=== PATIENT | male | born 1990 ===

== ENCOUNTER 2021-12-17 13:47 | Inpatient (IN) | payer OTHER ==
[~2021-12-17] VITALS: Ht 167.6 cm; Wt 54.1 kg
[2021-12-17 21:01] LABS: COVID AG,FIA SOURCE NASAL SWAB
[2021-12-17] MEDS ORDERED: ACETAMINOPHEN 325 MG TABLET PO PRN (21:30)
[2021-12-17] MEDS ORDERED: ONDANSETRON HCL 4 MG/2 ML VIAL IVP PRN (21:30)
[2021-12-17] MEDS: 1: MAGNESIUM SULFATE 2 GM, MVI, ADULT NO.1 WITH VIT K 10 ML, THIAMINE 100 MG, FOLIC ACID IV SCH ×5 (22:00)
[2021-12-17 22:30] VITALS: BP 114/78
[2021-12-17] MEDS: HEPARIN SODIUM,PORCINE 5,000 UNITS/ML VIAL SQ SCH (23:36)
[2021-12-18 04:20] VITALS: BP 92/56
[2021-12-18 08:00] VITALS: BP 95/62
[2021-12-18] MEDS: HEPARIN SODIUM,PORCINE 5,000 UNITS/ML VIAL SQ SCH ×3 (08:00→23:14)
[2021-12-18] MEDS: 1: MAGNESIUM SULFATE 2 GM, MVI, ADULT NO.1 WITH VIT K 10 ML, THIAMINE 100 MG, FOLIC ACID IV SCH ×10 (08:10→18:10)
[2021-12-18] MEDS: SERTRALINE HCL 100 MG TABLET PO SCH (11:15)
[2021-12-18] MEDS: DIVALPROEX SODIUM 250 MG DR TABLET PO SCH ×2 (11:15→19:50)
[2021-12-18] MEDS: RisperiDONE 2 MG TABLET PO SCH ×2 (11:15→19:50)
[2021-12-18 15:30] VITALS: BP 94/62
[2021-12-18 19:30] VITALS: BP 101/63
[2021-12-18] MEDS: PRAZOSIN HCL 2 MG CAPSULE PO SCH ×2 (19:50→20:57)
[2021-12-19] MEDS: 1: MAGNESIUM SULFATE 2 GM, MVI, ADULT NO.1 WITH VIT K 10 ML, THIAMINE 100 MG, FOLIC ACID IV SCH ×5 (04:20)
[2021-12-19 05:15] VITALS: BP 97/46
[2021-12-19 07:37] VITALS: BP 83/54
[2021-12-19] MEDS: HEPARIN SODIUM,PORCINE 5,000 UNITS/ML VIAL SQ SCH (08:00)
[2021-12-19] MEDS ORDERED: SODIUM CHLORIDE 0.9% 250 ML IV ONE (08:00)
[2021-12-19] MEDS: SERTRALINE HCL 100 MG TABLET PO SCH (08:55)
[2021-12-19] MEDS: DIVALPROEX SODIUM 250 MG DR TABLET PO SCH (08:55)
[2021-12-19] MEDS: RisperiDONE 2 MG TABLET PO SCH (08:55)
[2021-12-19 09:16] VITALS: BP 96/66
== END 2021-12-19 13:35 | DRG 640 ==
LOC: EMS 13:47 → 6S 21:32
PROVIDERS: ADMIT Internal Medicine; ATTEND Internal Medicine
DX: E86.0 Dehydration (principal); E43 Unspecified severe protein-calorie malnutrition; Z68.1 Body mass index [BMI] 19.9 or less, adult; F33.2 Major depressive disorder, recurrent severe without psychotic features; R62.7 Adult failure to thrive; Z20.822 Contact with and (suspected) exposure to COVID-19
CPT/HCPCS: 99285; J3411; J3475; J3490; J7030